=== PATIENT | male | born 1985 | race African-American/Black ===

== ENCOUNTER 2018-08-05 12:18 | Emergency (ER) | payer OTHER ==
--- NOTE | 2018-08-05 14:36 | EDPHYS ---
Physician Documentation [facility] Name: Froylan Lin Age: 33 yrs Sex: Male : 1985 Arrival Date: 08/05/2018 Time: 12:22 Bed 15 Private MD: None, None ED Physician Dennis Pappas HPI: 08/05 14:28 This 33 yrs old Black Male presents to ER via Ambulatory with complaints of Wrist Pain. kav 14:29 The patient or guardian reports pain, tenderness. The complaints affect the left wrist kav diffusely. Context: The problem was sustained at home. Onset: The symptoms/episode began/occurred acutely. Modifying factors: The symptoms are alleviated by rest, the symptoms are aggravated by movement. Associated signs and symptoms: Pertinent positives: single lesion, of the lateral aspect of left wrist. The patient has not experienced similar symptoms in the past. The patient has not recently seen a physician. single lesion anterior aspect left wrist. patient reports that lesion occurred acutely. 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 lesion is not fixed and is moveable and is tender to touch. Historical: - Allergies: 12:24 NKDA; sv - PMHx: 12:24 None; sv - PSHx: 12:24 None; sv - Immunization history:: Flu vaccine is up to date. - Social history:: Smoking status: Patient/guardian denies using tobacco. - Ebola Screening: : No symptoms or risks identified at this time. - Family history:: not pertinent. - Hospitalizations: : No recent hospitalization is reported. ROS: 14:32 Constitutional: Negative for fever, chills, and weight loss, Eyes: Negative for injury, kav pain, redness, and discharge, ENT: Negative for injury, pain, and discharge, Neck: Negative for injury, pain, and swelling, Cardiovascular: Negative for chest pain, palpitations, and edema, Respiratory: Negative for shortness of breath, cough, wheezing, and pleuritic chest pain, Abdomen/GI: Negative for abdominal pain, nausea, vomiting, diarrhea, and constipation, Back: Negative for injury and pain, : Negative for injury, bleeding, discharge, and swelling, Skin: Negative for injury, rash, and discoloration, Neuro: Negative for headache, weakness, numbness, tingling, and seizure, Psych: Negative for depression, anxiety, suicide ideation, homicidal ideation, and hallucinations, Allergy/Immunology: Negative for hives, rash, and allergies, Endocrine: Negative for neck swelling, polydipsia, polyuria, polyphagia, and marked weight changes, Hematologic/Lymphatic: Negative for swollen nodes, abnormal bleeding, and unusual bruising. 14:32 MS/extremity: Positive for pain, of the left wrist, single lesion, Negative for paresthesias. Exam: 14:32 Constitutional: This is a well developed, well nourished patient who is awake, alert, kav and in no acute distress. Head/Face: Normocephalic, atraumatic. Eyes: Pupils equal round and reactive to light, extra-ocular motions intact. Lids and lashes normal. Conjunctiva and sclera are non-icteric and not injected. Cornea within normal limits. Periorbital areas with no swelling, redness, or edema. ENT: Nares patent. No nasal discharge, no septal abnormalities noted. Tympanic membranes are normal and external auditory canals are clear. Oropharynx with no redness, swelling, or masses, exudates, or evidence of obstruction, uvula midline. Mucous membranes moist. Neck: Trachea midline, no thyromegaly or masses palpated, and no cervical lymphadenopathy. Supple, full range of motion without nuchal rigidity, or vertebral point tenderness. No Meningismus. Chest/axilla: Normal chest wall appearance and motion. Nontender with no deformity. No lesions are appreciated. Cardiovascular: Regular rate and rhythm with a normal S1 and S2. No gallops, murmurs, or rubs. Normal PMI, no JVD. No pulse deficits. Respiratory: Lungs have equal breath sounds bilaterally, clear to auscultation and percussion. No rales, rhonchi or wheezes noted. No increased work of breathing, no retractions or nasal flaring. Abdomen/GI: Soft, non-tender, with normal bowel sounds. No distension or tympany. No guarding or rebound. No evidence of tenderness throughout. Back: No spinal tenderness. No costovertebral tenderness. Full range of motion. Skin: Warm, dry with normal turgor. Normal color with no rashes, no lesions, and no evidence of cellulitis. Neuro: Awake and alert, GCS 15, oriented to person, place, time, and situation. Cranial nerves II-XII grossly intact. Motor strength 5/5 in all extremities. Sensory grossly intact. Cerebellar exam normal. Normal gait. Psych: Awake, alert, with orientation to person, place and time. Behavior, mood, and affect are within normal limits. 14:32 Musculoskeletal/extremity: Extremities: tenderness, single lesion - appears to be a ganglionic cyst, ROM: limited active range of motion, Circulation is intact in all extremities. Pulses: are normal with no appreciated deficits, Sensation intact. Vital Signs: 12:24 BP 144 / 89; Pulse 94; Resp 18; Temp 98.9; Pulse Ox 97% ; Weight 106.59 kg; Height 5 sv ft. 7 in. (170.18 cm); Pain 6/10; 12:24 Body Mass Index 36.81 (106.59 kg, 170.18 cm) sv MDM: 14:16 Medical screening is not applicable. [facility] 14:32 Differential diagnosis: contusion, tendonitis, ganglionic cyst. Data reviewed: vital [facility] signs, nurses notes. Administered Medications: 14:45 Drug: Ibuprofen 800 mg Route: PO; bp Disposition: 18:49 Co-signature as Attending Physician, Dennis Pappas MD. rn Disposition: 08/05/18 14:35 Discharged to Home. Impression: Ganglion, left wrist. - Condition is Fair. - Discharge Instructions: Ganglion Cyst. - Prescriptions for Ibuprofen 800 mg Oral Tablet - take 1 tablet by ORAL route every 8 hours As needed take with food; 30 tablet. - Medication Reconciliation Form, Thank You Letter, Antibiotic Education, Prescription Opioid Use, Work release form form. - Follow up: Private Physician; When: 5 - 6 days; Reason: Recheck today's complaints, Continuance of care, Re-evaluation by your physician. - Problem is new. - Symptoms have improved. - Notes: f/u with general surgeon for removal of ganglion avoid repetative motion of left wrist until inflammation decreases Signatures: Shellie Blandon, RN RN sv Brigida Tejeda, BRAKE PRESS OPERATOR BRAKE PRESS OPERATOR Dennis Schwartz MD MD rn Calderon, Audri, RN RN aa5 Gaetano Leon RN RN bp Corrections: (The following items were deleted from the chart) 14:59 14:35 08/05/2018 14:35 Discharged to Home. Impression: Ganglion, left wrist. Condition aa5 is Fair. Forms are Medication Reconciliation Form, Thank You Letter, Antibiotic Education, Prescription Opioid Use. Follow up: Private Physician; When: 5 - 6 days; Reason: Recheck today's complaints, Continuance of care, Re-evaluation by your physician. Problem is new. Symptoms have improved. kawilliam
--- NOTE | 2018-08-05 14:36 | ER ---
Nurse's Notes [facility] Name: Froylan Lin Age: 33 yrs Sex: Male : 1985 Arrival Date: 08/05/2018 Time: 12:22 Bed 15 Private MD: None, None Diagnosis: Ganglion, left wrist Presentation: 08/05 12:23 Presenting complaint: Patient states: left wrist pain after noticing a "bump" come up sv on the inner side. Transition of care: patient was not received from another setting of care. Onset of symptoms was August 01, 2018. Care prior to arrival: None. 12:23 Method Of Arrival: Ambulatory sv 12:23 Acuity: BOWEN 3 sv Triage Assessment: 12:23 General: Appears in no apparent distress. uncomfortable, Behavior is calm, cooperative, sv appropriate for age. Pain: Complains of pain in left wrist Pain currently is 6 out of 10 on a pain scale. Neuro: Level of Consciousness is awake, alert, obeys commands, Oriented to person, place, time, situation, Moves all extremities. Respiratory: Respiratory effort is even, unlabored, Respiratory pattern is regular, symmetrical. Musculoskeletal: Range of motion: limited in left wrist. Historical: - Allergies: 12:24 NKDA; sv - PMHx: 12:24 None; sv - PSHx: 12:24 None; sv - Immunization history:: Flu vaccine is up to date. - Social history:: Smoking status: Patient/guardian denies using tobacco. - Ebola Screening: : No symptoms or risks identified at this time. - Family history:: not pertinent. - Hospitalizations: : No recent hospitalization is reported. Screenin:19 Abuse screen: Denies threats or abuse. Denies injuries from another. Nutritional bp screening: No deficits noted. Tuberculosis screening: No symptoms or risk factors identified. Fall Risk None identified. Assessment: 14:00 General: Appears in no apparent distress. comfortable, Behavior is calm, cooperative, bp appropriate for age. Pain: Complains of pain in left wrist. Neuro: Level of Consciousness is awake, alert, obeys commands, Oriented to person, place, time, situation, Appropriate for age. Cardiovascular: No deficits noted. Respiratory: Airway is patent Respiratory effort is even, unlabored, Respiratory pattern is regular, symmetrical. GI: No signs and/or symptoms were reported involving the gastrointestinal system. : No signs and/or symptoms were reported regarding the genitourinary system. EENT: No deficits noted. Derm: No deficits noted. Musculoskeletal: Circulation, motion, and sensation intact. Range of motion: intact in all extremities. Vital Signs: 12:24 BP 144 / 89; Pulse 94; Resp 18; Temp 98.9; Pulse Ox 97% ; Weight 106.59 kg; Height 5 sv ft. 7 in. (170.18 cm); Pain 6/10; 12:24 Body Mass Index 36.81 (106.59 kg, 170.18 cm) sv ED Course: 12:22 Patient arrived in ED. mr 12:22 None, None is Private Physician. mr 12:24 Triage completed. sv 12:25 Arm band placed on Patient placed in waiting room, Patient notified of wait time. sv 14:15 Gaetano Leon, RN is Primary Nurse. bp 14:16 Brigida Tejeda, MATIAS is PHCP. kav 14:16 Dennis Pappas MD is Attending Physician. kav 14:19 Patient has correct armband on for positive identification. Bed in low position. Call bp light in reach. Side rails up X2. Administered Medications: 14:45 Drug: Ibuprofen 800 mg Route: PO; bp Outcome: 14:35 Discharge ordered by MD. kav 14:59 Patient left the ED. aa5 Signatures: Shellie Blandon RN RN Brigida Tejeda FNP FNP kav Rivera, Mary mr AquinoNorma RN RN aa5 Gaetano Leon RN RN bp
[2018-08-05] MEDS ORDERED: IBUPROFEN 400 MG TAB ONE (14:50)
[2018-08-05 15:04] VITALS: BP 144/89; TEMP 98.9; O2SAT 97
== END 2018-08-05 14:59 | disposition home or self-care (01) ==
LOC: ER 12:18
DX: M67.432 Ganglion, left wrist (principal)
CPT/HCPCS: 99282

== ENCOUNTER 2018-10-31 14:24 | Observation (INO) | payer OTHER ==
[2018-10-31 14:51] LABS: Absolute Lymphocytes (CBC) 1.5 K/uL (0.7-4.9); Absolute Monocytes 0.5 K/uL (0.1-1.3); Absolute Neutrophil 4.4 K/uL (1.8-8.0); Basophils % 0.9 % (0-1.3); Eosinophils % 1.7 % (0-4.4); Hematocrit 48.2 % (39.6-49.0); Lymphocytes % 22.7 % (15.3-44.8); Monocytes % 7.2 % (3.3-12.3); RBC Red Blood Cell Count 5.31 M/uL (4.33-5.43)
[2018-10-31 14:52] LABS: Protime INR 1.11
[2018-10-31 15:05] LABS: Albumin 3.8 g/dL (3.4-5.0); Bilirubin Direct 0.1 mg/dL (0-0.2); Bilirubin Total 0.5 mg/dL (0.2-1.0); Magnesium 2.1 mg/dL (1.8-2.4); Potassium 3.7 mmol/L (3.5-5.1); Protein, Total 7.7 g/dL (6.4-8.2); Troponin (Emerg Dept Use Only) 0.03 ng/mL (0.0-0.045)
--- NOTE | 2018-10-31 15:27 | RAD REPORT ---
EXAM DESCRIPTION: Katalina Single View10/31/2018 3:18 pm CLINICAL HISTORY: Chest pain COMPARISON: none FINDINGS: The lungs appear clear of acute infiltrate. The heart is borderlined enlarged. IMPRESSION: No acute abnormalities displayed
--- NOTE | 2018-10-31 15:43 | ER ---
Nurse's Notes [facility] Name: Froylan Lin Age: 33 yrs Sex: Male : 1985 Arrival Date: 10/31/2018 Time: 14:25 Bed 6 Private MD: Diagnosis: Chest pain, unspecified Presentation: 10/31 14:28 Presenting complaint: EMS states: C/O chest pain and SOB that started at approx 1345, ph reports hx of cardiac problems, VSS en route to ED 324 ASA administered and IV initiated. Transition of care: patient was not received from another setting of care. Onset of symptoms was October 31, 2018. Risk Assessment: Do you want to hurt yourself or someone else? Patient reports no desire to harm self or others. Initial Sepsis Screen: Does the patient meet any 2 criteria? No. Patient's initial sepsis screen is negative. Does the patient have a suspected source of infection? No. Patient's initial sepsis screen is negative. Care prior to arrival: Medication(s) given: ASA, 81 mg, x 4, IV initiated. 20 GA, in the left antecubital area. 14:28 Method Of Arrival: EMS: [facility] 14:28 Acuity: BOWEN 3 ph Historical: - Allergies: 14:31 NKDA; ph - Home Meds: 14:31 None [Active]; ph - PMHx: 14:31 hypertrophic cardiomyopathy; ph - Immunization history:: Adult Immunizations unknown. - Social history:: Smoking status: Patient/guardian denies using tobacco. - Ebola Screening: : No symptoms or risks identified at this time. - Family history:: not pertinent. - Hospitalizations: : No recent hospitalization is reported. Screenin:30 Abuse screen: Denies threats or abuse. Denies injuries from another. Nutritional hb screening: No deficits noted. Tuberculosis screening: No symptoms or risk factors identified. Fall Risk None identified. Assessment: 14:40 General: Appears in no apparent distress. comfortable, well groomed, Behavior is calm, ph cooperative, appropriate for age, Denies fever, feeling ill. Pain: Complains of pain in anterior aspect of left upper chest Pain does not radiate. Pain currently is 4 out of 10 on a pain scale. Neuro: Level of Consciousness is awake, alert, obeys commands, Oriented to person, place, time, situation, Denies weakness dizziness. Cardiovascular: Reports chest pain, shortness of breath, Denies diaphoresis, nausea, palpitations, Capillary refill < 3 seconds in bilateral fingers Patient's skin is warm and dry. Chest pain is described as Pain is 4 out of 10 on a pain scale. is located in left anterior chest wall began 1 hour prior to arrival. Respiratory: Airway is patent Respiratory effort is even, unlabored, Respiratory pattern is regular, symmetrical. GI: Patient currently denies abdominal pain, nausea, vomiting. Derm: Skin is intact, is healthy with good turgor, Skin is pink, warm \T\ dry. Musculoskeletal: Circulation, motion, and sensation intact. Range of motion: intact in all extremities. 15:40 Reassessment: Patient appears in no apparent distress at this time. Patient and/or ph family updated on plan of care and expected duration. Pain level reassessed. Patient is alert, oriented x 3, equal unlabored respirations, skin warm/dry/pink. Pt resting quietly, reports pain is 2/10 and denies nausea and SOB, VSS, family at bedside, awaiting admission. 16:05 Reassessment: No changes from previously documented assessment. Patient is alert, ph oriented x 3, equal unlabored respirations, skin warm/dry/pink. Dr Rosa at bedside to speak w/ pt and family, awaiting room assignment. Vital Signs: 14:30 BP 130 / 76; Pulse 78; Resp 16; Temp 97.8; Pulse Ox 97% on R/A; Weight 104.33 kg; ph Height 5 ft. 7 in. (170.18 cm); Pain 4/10; 15:42 BP 114 / 79; Pulse 61; Resp 22; Pulse Ox 95% on R/A; ph 14:30 Body Mass Index 36.02 (104.33 kg, 170.18 cm) ph ED Course: 14:25 Patient arrived in ED. sg 14:28 Dennis Pappas MD is Attending Physician. rn 14:28 Emi Nguyen RN is Primary Nurse. ph 14:30 Triage completed. ph 14:31 Arm band placed on. hb 14:31 Patient has correct armband on for positive identification. Bed in low position. Call ph light in reach. Side rails up X 1. reefer truck driver on. Pulse ox on. NIBP on. 14:42 Maintain EMS IV. Dressing intact. Good blood return noted. Site clean \T\ dry. Gauge \T\ ph site: 20 LAC. 15:18 XRAY Chest (1 view) In Process Unspecified. EDMS 15:42 Harsha Morales MD is Hospitalizing Provider. rn 15:43 Benjamin Rosa DO is Hospitalizing Provider. rn 16:30 No provider procedures requiring assistance completed. Patient admitted, IV remains in ph place. Administered Medications: No medications were administered Outcome: 15:43 Decision to Hospitalize by Provider. rn 17:16 Admitted to Tele accompanied by [facility], via wheelchair, room 425, with chart. ph 17:16 Condition: stable 17:16 Instructed on the need for admit. 17:17 Patient left the ED. ph Signatures: Dispatcher [employer] EDMS Marlo Mc, Dennis Decker RN, MD MD rn Hall, Patricia, RN RN ph Baxter, Heather, RN RN
--- NOTE | 2018-10-31 15:43 | EDPHYS ---
Physician Documentation [facility] Name: Froylan Lin Age: 33 yrs Sex: Male : 1985 Arrival Date: 10/31/2018 Time: 14:25 Bed 6 Private MD: ED Physician Dennis Pappas HPI: 10/31 14:38 This 33 yrs old Black Male presents to ER via EMS with complaints of chest pain. rn 14:38 The patient or guardian reports chest pain that is located primarily in the substernal rn area. The pain does not radiate. Associated signs and symptoms: Pertinent positives: None. Pertinent negatives: abdominal pain, lightheadedness, near syncope, palpitations, shortness of breath, syncope, vomiting. The chest pain is described as aching, throbbing. Duration: The patient or guardian reports a single episode, that is still ongoing. Severity of pain: At its worst the pain was moderate in the emergency department the pain has improved. The patient has experienced a previous episode. The patient has not recently seen a physician. REports woke up, went to use shower, got chest pain, substernal, non-radiating, now easing up, similar episode 1 year ago and diagnosed with cardiomyopathy. No drug use. No trauma. No fever/cough.. Historical: - Allergies: 14:31 NKDA; ph - Home Meds: 14:31 None [Active]; ph - PMHx: 14:31 hypertrophic cardiomyopathy; ph - Immunization history:: Adult Immunizations unknown. - Social history:: Smoking status: Patient/guardian denies using tobacco. - Ebola Screening: : No symptoms or risks identified at this time. - Family history:: not pertinent. - Hospitalizations: : No recent hospitalization is reported. ROS: 14:38 Constitutional: Negative for fever, chills, and weight loss, Eyes: Negative for injury, rn pain, redness, and discharge, Cardiovascular: Negative for palpitations, and edema, Respiratory: Negative for shortness of breath, cough, wheezing, and pleuritic chest pain, Abdomen/GI: Negative for abdominal pain, nausea, vomiting, diarrhea, and constipation, MS/Extremity: Negative for injury and deformity, Skin: Negative for injury, rash, and discoloration, Neuro: Negative for headache, weakness, numbness, tingling, and seizure. Exam: 14:38 Constitutional: This is a well developed, well nourished patient who is awake, alert, rn appears anxious Head/Face: Normocephalic, atraumatic. Eyes: Pupils equal round and reactive to light, extra-ocular motions intact. Lids and lashes normal. Conjunctiva and sclera are non-icteric and not injected. Cornea within normal limits. Periorbital areas with no swelling, redness, or edema. ENT: MMM Cardiovascular: Regular rate and rhythm, No pulse deficits. Respiratory: Lungs have equal breath sounds bilaterally, clear to auscultation, No increased work of breathing, no retractions or nasal flaring. Abdomen/GI: soft, non-tender Skin: Warm, dry with normal turgor. Normal color with no rashes, no lesions, and no evidence of cellulitis. MS/ Extremity: Pulses equal, no cyanosis. Neurovascular intact. Full, normal range of motion. Equal circumference. Neuro: Awake and alert, GCS 15, oriented to person, place, time, and situation. Cranial nerves II-XII grossly intact. Motor strength 5/5 in all extremities. Sensory grossly intact. Cerebellar exam normal. Vital Signs: 14:30 BP 130 / 76; Pulse 78; Resp 16; Temp 97.8; Pulse Ox 97% on R/A; Weight 104.33 kg; ph Height 5 ft. 7 in. (170.18 cm); Pain 4/10; 15:42 BP 114 / 79; Pulse 61; Resp 22; Pulse Ox 95% on R/A; ph 14:30 Body Mass Index 36.02 (104.33 kg, 170.18 cm) ph MDM: 14:28 Patient medically screened. rn 14:36 ED course: ECG without gross change, ECG from 1 year ago when had syncope and diagnosed rn with Hypertrophic cardiomyopathy, still shows mild ST elevation in lead III, t wave inversion I/AVL, no other ST elevation. Pain improving on its own, awaiting bloodwork. + known cardiomyopathy, no drug use, no gross change in ECG, will continue to observe in ER for changes. . 15:41 Differential diagnosis: abnormal EKG, acute myocardial infarction, acute pericarditis, rn anxiety, coronary artery disease chest wall pain, pericarditis, pleurisy, pneumothorax. Data reviewed: vital signs, nurses notes, lab test result(s), EKG, radiologic studies, plain films, and as a result, I will admit patient. Counseling: I had a detailed discussion with the patient and/or guardian regarding: the historical points, exam findings, and any diagnostic results supporting the discharge/admit diagnosis, lab results, radiology results, the need for further work-up and treatment in the hospital. Response to treatment: the patient's symptoms have resolved after treatment, the patient's condition has returned to base line, the patient is now symptom free, and as a result, I will admit patient. Admission orders: after a detailed discussion of the patient's condition and case, the admit orders are written by me. 10/31 14:35 Order name: Basic Metabolic Panel; Complete Time: 15:10/31 14:35 Order name: CBC with Diff; Complete Time: 15:10/31 14:35 Order name: LFT's; Complete Time: 15:10/31 14:35 Order name: Magnesium; Complete Time: 15:10/31 14:35 Order name: NT PRO-BNP; Complete Time: 15:10/31 14:35 Order name: PT-INR; Complete Time: 15:10/31 14:35 Order name: Troponin (emerg Dept Use Only); Complete Time: 15:10/31 14:35 Order name: XRAY Chest (1 view); Complete Time: 15:30 10/31 14:35 Order name: EKG; Complete Time: 14:35 10/31 14:35 Order name: Cardiac monitoring; Complete Time: 15:10/31 14:35 Order name: EKG - Nurse/Tech; Complete Time: 15:10/31 14:35 Order name: IV Saline Lock; Complete Time: 15:10/31 14:35 Order name: Labs collected and sent; Complete Time: 15:10/31 14:35 Order name: O2 Per Protocol; Complete Time: 15:10/31 14:35 Order name: O2 Sat Monitoring; Complete Time: 15: rn Administered Medications: No medications were administered Disposition: 10/31/18 15:43 Hospitalization ordered by Benjamin Rosa for Observation. Preliminary diagnosis is Chest pain, unspecified. - Bed requested for Telemetry/MedSurg (observation). - Status is Observation. ph - Condition is Stable. - Problem is new. - Symptoms have improved. UTI on Admission? No Signatures: Dispatcher [employer] EDDennis Hicks MD MD rn Hall, Patricia RN RN Lori Boyle RN RN df Corrections: (The following items were deleted from the chart) 16:18 15:43 Hospitalization Ordered by Benjamin Rosa DO for Observation. Preliminary df diagnosis is Chest pain, unspecified. Bed requested for Telemetry/MedSurg (observation). Status is Observation. Condition is Stable. Problem is new. Symptoms have improved. UTI on Admission? No. rn 17:17 16:18 10/31/2018 15:43 Hospitalization Ordered by Benjamin Rosa DO for Observation. ph Preliminary diagnosis is Chest pain, unspecified. Bed requested for Telemetry/MedSurg (observation). Status is Observation. Condition is Stable. Problem is new. Symptoms have improved. UTI on Admission? No. df
--- NOTE | 2018-10-31 16:09 | P.HP ---
Certification for Inpatient Patient admitted to: Observation With expected LOS: <2 Midnights Patient will require the following post-hospital care: None Practitioner: I am a practitioner with admitting privileges, knowledge of patient current condition, hospital course, and medical plan of care. Services: Services provided to patient in accordance with Admission requirements found in Title 42 Section 412.3 of the Code of Federal Regulations Patient History Date of Service: 10/31/18 Primary Care Provider: [facility] Reason for admission: Chest pain, palpitations History of Present Illness: 33-year-old male presented to the emergency room with chest pain and palpitation. Patient reports chest pain and palpitations today. He had woken up and gone to the bathroom. He start to have substernal chest pain. The chest pain lasted for about an hr. Some nausea was noted. He decided to come to the ER for further evaluation. Patient reports history of hypertrophic cardiomyopathy. He also reports family history of heart disease. In the ER patient evaluated. Blood pressure stable. CBC unremarkable. BMP unremarkable. Troponin 0.03. BNP at 4:03 a.m.. Chest x-ray unremarkable. EKG appeared the same as previous. No significant ST elevation noted. Patient was admitted for further evaluation. When I saw the patient ER, pain had resolved. Patient appeared comfortable. previous reports from September 2017 shows an ejection fraction 75%. Dilated atrium identified. Hyperdynamic changes were noted. He also had a stress test done at that time which showed no stress-induced ischemia. Allergies No Known Allergies Allergy (Verified 09/22/17 21:44) Home medications list reviewed: Yes Home Medications: Diltiazem Cd [Cardizem Cd*] 120 mg PO DAILY #30 cap 09/24/17 - Past Medical/Surgical History Diabetic: No -: Hypertrophic cardiomyopathy Past Surgical History: Patient denies surgical history Psychosocial/ Personal History: Denies smoking or drinking or doing any drugs. Patient is single. 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 - Family History Father -: Heart disease, Hypertension Mother -: Heart disease, Hypertension, Other (see notes) (CHF) - Social History Smoking Status: Never smoker Alcohol use: No CD- Drugs: No Caffeine use: No Place of Residence: Home Review of Systems General: As per HPI Eyes: Unremarkable ENT: Unremarkable Respiratory: Unremarkable Cardiovascular: Chest Pain, Palpitations, As per HPI Gastrointestinal: Nausea, As per HPI Genitourinary: Unremarkable Musculoskeletal: Unremarkable Integumentary: Unremarkable Neurological: Unremarkable Lymphatics: Unremarkable Physical Examination - Physical Exam General: Alert, In no apparent distress, Oriented x3, Cooperative HEENT: Atraumatic, Normocephalic, PERRLA, Mucous membr. moist/pink Neck: Supple, No Thyromegaly Respiratory: Clear to auscultation bilaterally, Normal air movement Cardiovascular: Normal pulses, Regular rate/rhythm Gastrointestinal: Normal bowel sounds, Soft and benign, Non-distended, No tenderness, No masses, No rebound, No guarding Musculoskeletal: No erythema, No tenderness, No warmth Integumentary: No tenderness/swelling, No erythema, No warmth, No cyanosis Neurological: Normal speech, Normal strength at 5/5 x4 extr, Normal tone, Normal affect - Studies Laboratory Data (last 24 hrs) 10/31/18 14:35: PT 13.1 H, INR 1.11 10/31/18 14:35: WBC 6.5, Hgb 15.9, Hct 48.2, Plt Count 237 10/31/18 14:35: Sodium 143, Potassium 3.7, BUN 12, Creatinine 1.22, Glucose 91, Magnesium 2.1, Total Bilirubin 0.5, AST 17, ALT 25, Alkaline Phosphatase 39 L Assessment and Plan - Plan Impression: Chest pain with palpitations with history of hypertrophic cardiomyopathy Suspect underlying obstructive sleep apnea. Plan: Patient will be admitted for further evaluation. Will continue monitor serial cardiac enzymes. Will start aspirin, DVT prophylaxis in provide medication for blood pressure if required. Will start Lipitor. Will check tsh, fasting lipid panel and repeat lab tomorrow. Cardiology consulted for further recommendation. Will order echocardiogram and stress test to further assess this condition. Patient would benefit with pulmonology evaluation as an outpatient for possible underlying obstructive sleep apnea. Patient may require sleep study as outpatient. I will turn the service over to Dr. Muñoz tomorrow. I will go over the plan of care with her. Discharge Plan: Home Plan to discharge in: 24 Hours - Advance Directives Does patient have a Living Will: No Does patient have a Durable POA for Healthcare: No - Code Status/Comfort Care Code Status Assessed: Yes (Patient full code.) Time Spent Managing Pts Care (In Minutes): 55
[2018-10-31] MEDS ORDERED: ACETAMINOPHEN 500 MG TAB PO PRN (17:38)
[2018-10-31] MEDS ORDERED: ONDANSETRON 4 MG/2 ML VIAL IV PRN (17:38)
[2018-10-31] MEDS ORDERED: HYDRALAZINE HCL 20 MG/ML VIAL IV PRN (17:38)
[2018-10-31] MEDS ORDERED: NITROGLYCERIN 0.4 MG/TAB SL PRN (17:45)
[2018-10-31] MEDS: ENOXAPARIN 40 MG/0.4 ML SQ SCH (18:00)
[2018-10-31 18:05] VITALS: BMI 36.0
[2018-10-31 18:29] LABS: Thyroid Stimulating Hormone 2.21 uIU/mL (0.360-3.740)
[2018-10-31] MEDS ORDERED: POTASSIUM CL SA 10 MEQ TAB PO SCH (18:35)
[2018-10-31] MEDS ORDERED: INFLUENZA VACCINE (for 3y+) 0.5 ML DOSE IMVAC ONE (18:50)
[2018-10-31 20:38] LABS: CKMB Creatine Kinase MB 1.9 ng/mL (0.3-3.6); Troponin I 0.03 ng/mL (0.0-0.045)
[2018-10-31] MEDS ORDERED: ATORVASTATIN 40 MG TAB PO SCH (21:00)
[2018-11-01 04:38] LABS: Absolute Monocytes 0.6 K/uL (0.1-1.3); Absolute Neutrophil 4.2 K/uL (1.8-8.0); Basophils % 0.7 % (0-1.3); Eosinophils % 3.7 % (0-4.4); Lymphocytes % 28.6 % (15.3-44.8); MPV 11.1 fL (7.6-11.3); Monocytes % 8.6 % (3.3-12.3); RBC Red Blood Cell Count 5.03 M/uL (4.33-5.43)
[2018-11-01 04:58] LABS: Magnesium 2.2 mg/dL (1.8-2.4); Potassium 4.2 mmol/L (3.5-5.1)
[2018-11-01 05:01] LABS: Troponin I 0.03 ng/mL (0.0-0.045)
[2018-11-01] MEDS ORDERED: REGADENOSON 0.4 MG/5 ML SYR IV ONE (07:46)
--- NOTE | 2018-11-01 07:58 | EKG ---
Test Date: 2018-10-31 Test Time: 14:27:01 Convention Manager: MEASUREMENT RESULTS: Intervals: Rate: 74 IA: 168 QRSD: 106 QT: 418 QTc: 463 Stephenson: P: 17 IA: 168 QRS: 23 T: 157 INTERPRETIVE STATEMENTS: Normal sinus rhythm Possible Left atrial enlargement Consider right ventricular involvement in acute inferior infarct Abnormal ECG Compared to ECG 09/22/2017 07:31:09 Sinus bradycardia no longer present Sinus arrhythmia no longer present ST (T wave) deviation no longer present Possible ischemia no longer present Myocardial infarct finding still present Electronically Signed On 11-01-18 07:54:06 JOURNAL BOX INSPECTOR by Vernon Brand
[2018-11-01] MEDS ORDERED: ASPIRIN EC 81 MG TAB PO SCH (09:00)
[2018-11-01] MEDS: ENOXAPARIN 40 MG/0.4 ML SQ SCH (09:09)
--- NOTE | 2018-11-01 09:32 | RAD REPORT ---
EXAM DESCRIPTION: [facility] - Rest Stress Cardiac Imaging - 11/01/2018 8:43 am CLINICAL HISTORY: CP Chest pain. COMPARISON: Rest Stress Cardiac Imaging dated 09/23/2017 TECHNIQUE: The patient was administered approximately 10mCi of Tc 99m Sestamibi prior to resting SPE CT imaging of the heart. The patient was then administered approximately 30 mCi of Tc 99m Sestamibi f ollowing exercise or pharmacologic stress. Multiplanar SPECT images were reviewed. FINDINGS: Mild reduced radiopharmaceutical accumulation is seen in the anterior wall with stress sug gesting mild anterior wall ischemia. Left ventricular cavity appears enlarged on both rest and stress with areas of diminished density seen in inferolateral wall most compatible with scarring. The end diastolic volume is 215 ml, the end systolic volume is 163 ml, and the ejection fraction is 2 4 %. IMPRESSION: Mild anterior wall stress-induced ischemia. Significant diminished ejection fraction 24% with left ventricular cavity enlargement on rest and str ess.
[2018-11-01 13:17] VITALS: BP 126/64; TEMP 99.3
[2018-11-01 17:46] VITALS: O2SAT 98
--- NOTE | 2018-11-01 17:55 | P.SSS ---
Patient History Date of Service: 11/01/18 Primary Care Provider: [facility] Reason for admission: Chest pain, palpitations History of Present Illness: 33-year-old male presented to the emergency room with chest pain and palpitation. Patient reports chest pain and palpitations today. He had woken up and gone to the bathroom. He start to have substernal chest pain. The chest pain lasted for about an hr. Some nausea was noted. He decided to come to the ER for further evaluation. Patient reports history of hypertrophic cardiomyopathy. He also reports family history of heart disease. In the ER patient evaluated. Blood pressure stable. CBC unremarkable. BMP unremarkable. Troponin 0.03. BNP at 4:03 a.m.. Chest x-ray unremarkable. EKG appeared the same as previous. No significant ST elevation noted. Patient was admitted for further evaluation. When I saw the patient ER, pain had resolved. Patient appeared comfortable. previous reports from September 2017 shows an ejection fraction 75%. Dilated atrium identified. Hyperdynamic changes were noted. He also had a stress test done at that time which showed no stress-induced ischemia. Allergies No Known Allergies Allergy (Verified 09/22/17 21:44) Home Medications: Metoprolol Succinate [Toprol Xl] 50 mg PO BID* #60 tab.er.24h 11/01/18 - Past Medical/Surgical History Has patient received pneumonia vaccine in the past: No Diabetic: No -: Hypertrophic cardiomyopathy Psychosocial/ Personal History: Denies smoking or drinking or doing any drugs. Patient is single. 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 - Family History Father -: Heart disease, Hypertension Mother -: Heart disease, Hypertension, Diabetes, Other (see notes) Notes: sleep apnea - Social History Smoking Status: Never smoker Alcohol use: Yes CD- Drugs: No Caffeine use: Yes Place of Residence: Home Review of Systems 10-point ROS is otherwise unremarkable Physical Examination - Vital Signs Temperature: 99.3 F Blood Pressure: 126/64 Pulse: 61 Respirations: 20 Pulse Ox (%): 95 - Physical Exam General: Alert, In no apparent distress HEENT: Atraumatic, PERRLA, Mucous membr. moist/pink, EOMI, Sclerae nonicteric Neck: Supple, 2+ carotid pulse no bruit, No LAD, Without JVD or thyroid abnormality Respiratory: Clear to auscultation bilaterally, Normal air movement Cardiovascular: Regular rate/rhythm, Normal S1 S2 Gastrointestinal: Normal bowel sounds, No tenderness Musculoskeletal: No tenderness Integumentary: No rashes Neurological: Normal gait, Normal speech, Normal strength at 5/5 x4 extr, Normal tone, Normal affect Lymphatics: No axilla or inguinal lymphadenopathy - Diagnosis (Problem(s)) (1) Chest pain Onset Date: 11/01/18 Current Visit: Yes Status: Acute (2) Palpitations Onset Date: 11/01/18 Current Visit: Yes Status: Acute (3) Hypertrophic cardiomyopathy Current Visit: No Status: Acute Treatment Summary: Overall during the hospital stay patient main stable Patient was initially admitted to the hospital for chest pain and palpitations. Patient's history hypertrophic cardiomyopathy however is noncompliant with medication due to the fact that he is not able to void. 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 Cardiology was consulted yesterday who recommended the patient get echocardiogram and stress test done here in the hospital both of which were done with no acute abnormality was noted. Per cardiology's recommendation at that time patient was discharged home and asked to continue taking metoprolol 50 mg b.i.d.. Patient was also asked to follow up with cardiology in about 1-2 days post discharge. No other concerns for noted and thus patient was discharged home under stable condition. Troponin x3 remained negative. EKG with nonspecific changes. Chest pain had resolved on the day of discharge. - Disposition Disposition: ROUTINE DISCHARGE Condition: GOOD Diet: Regular Activity: Ad lydia
[2018-11-01] MEDS ORDERED: INFLUENZA VACCINE (for 3y+) 0.5 ML DOSE IMVAC ONE (19:00)
--- NOTE | 2018-11-02 04:13 | CON ---
Date of Consultation: 11/01/2018 Reason For Consultation: Chest pain and palpitations. History Of Present Illness: Mr. Lin is a 33-year-old black male who is known to have asymmetrica l septal hypertrophy as of an echocardiogram of September 2017. He also had a negative stress test th en. He is supposed to be taking a beta-wesley, but he basically has not taken any medication and power s not seen anybody. Typically, he follows up at the [facility]. He came in with chest pain, pressu re-like, and hypertension. No nausea, vomiting, diaphoresis, PND, orthopnea, pedal edema, or syncope . He has had palpitations. Review of Systems: Negative. Social History: Negative. Family History: Negative. Allergies: NONE. Medications: At home are none. Physical Examination: General: He was pleasant, no acute distress. Vital Signs: Stable. Afebrile. HEENT: Negative. Neck: Supple, with no bruit. Chest: Clear. Cardiac: Revealed regular rhythm and rate, with an S4 gallop. No murmurs or rubs. Abdomen: Benign. Extremities: Revealed no clubbing, cyanosis, or edema. Laboratory Data: EKG showed LVH. Cholesterol is 213. LDL is 157. Creatinine is 1.38. Chest x-ray was negative. Impression And Plan: 1.Asymmetrical septal hypertrophy, with hypertension, causing his chest pain. 2.Renal insufficiency. 3.Dyslipidemia. Echocardiogram and Lexiscan have already been ordered by Dr. Muñoz, and I agree with that. We will s ee what that shows prior to sending him home. I did discuss compliance with Mr. Lin. I recommen ded he at least takes a beta-wesley to prevent arrhythmias and chest pain and congestive heart failu re from his asymmetrical septal hypertrophy. We will see what his cardiac workup shows prior to disc harging him. I wish to see him in the office in followup in the next 2 to 4 weeks. CHARLENE/KANDY Voice ID: [id number] Report ID: [id number]
--- NOTE | 2018-11-02 09:12 | TREADPHA ---
DX: CHEST PAIN, PALPITATIONS, HISTORY OF CARDIOMYOPATHY Date of Study: 11/01/2018 Ht: 5 7 Wt: 230 lb 0 oz Consulting Physician: SAMMI MEDICATIONS: TYLENOL, ASPIRIN, LIPITOR, LOVENOX, APRESOLINE, NITROSTAT HISTORY: 33 YEAR OLD MALE WITH COMPLAINTS OF CHEST PAIN AND PALPITATIONS. HISTORY OF HYPERTROPHIC CARDIOMYOPATHY, NON-SMOKER, NON-DRINKER. PHYSICIAL EXAMINATION: RESTING B.P.: 123/71 RESTING H.R.: 53 RESTING EKG: SINUS BRADYCARIDA, LEFT VENTRICULAR HYPERTROPHY PROTOCOL: LEXISCAN EXERCISE TIME: 3:30 B.P. AT PEAK STRESS: 126/70 IMPRESSION: LEXISCAN INJECTED AND FLUSED FOLLOWED BY CARDIOLITE PER PROTOCOL. SEE NUCLEAR MEDICINE REPORT. PATIENT DENIES CHEST PAIN. ONE PREMATURE VENTRICULAR COMPLEX DURING. NO SUPRAVENTRICULAR TACHYCARDIA. NO VENTRICULAR TACHYCARDIA. NO PREMATURE ATRIAL COMPLEXES.
--- NOTE | 2018-11-02 09:19 | ECHO ---
HEIGHT: 5 ft 7 in WEIGHT: 230 lb 0 oz DATE OF STUDY: 11/01/[address]: Benjamin Rosa DO 2-DIMENSIONAL: YES M.MODE: YES DOPPLER: YES COLOR FLOW: YES TDS: PORTABLE: DEFINITY: BUBBLE STUDY: DIAGNOSIS: CHEST PAIN, PALPITATIONS, HISTORY OF CARDIOMYOPATHY CARDIAC HISTORY: CATHERIZATION: NO SURGERY: NO PROSTHETIC VALVE: NO PACEMAKER: NO MEASUREMENTS (cm) DIASTOLIC (NORMALS) SYSTOLIC (NORMALS) IVSd 1.3 (0.6-1.2) LA Diam 4.4 (1.9-4.0) LVEF 59% LVIDd 5.6 (3.5-5.7) LVIDs 3.8 (2.0-3.5) %FS 32% LVPWd 1.4 (0.6-1.2) Ao Diam 2.9 (2.0-3.7) 2 DIMENSIONAL ASSESSMENT: RIGHT ATRIUM: NORMAL LEFT ATRIUM: DILATED RIGHT VENTRICLE: NORMAL LEFT VENTRICLE: LEFT VENTRICULAR HYPERTROPHY TRICUSPID VALVE: NORMAL MITRAL VALVE: NORMAL PULMONIC VALVE: NORMAL AORTIC VALVE: NORMAL PERICARDIAL EFFUSION: NONE AORTIC ROOT: NORMAL LEFT VENTRICULAR WALL MOTION: DECREASED LEFT VENTRICULAR COMPLIANCE DOPPLER/COLOR FLOW: NORMAL COMMENTS: ASSYMATIC SEPTAL HYPERTROPHY. LEFT ATRAL ENLARGEMENT. NORMAL EJECTION FRACTION. DECREASED LEFT VENTRICULAR COMPLIANCE. TECHNOLOGIST: DEVIN STEWARD
== END 2018-11-01 19:00 | disposition home or self-care (01) ==
LOC: ER 14:24 → ERHOLD 15:53 → 4TH 17:08
PROVIDERS: ADMIT Family Medicine; ATTEND Family Medicine
DX: R07.9 Chest pain, unspecified (principal); R00.2 Palpitations; I42.2 Other hypertrophic cardiomyopathy; Z91.14 Patient's other noncompliance with medication regimen
CPT/HCPCS: 36415; 71045; 78452; 80048; 80061; 80076; 82550; 82553; 83735; 83880; 84439; 84443; 84484; 85025; 85610; 93005; 93017; 93306; 99285; A9500; G0378; J1650; J2785; Q2035